=== PATIENT | male | born 1995 | race African-American/Black ===

== ENCOUNTER 2025-01-07 23:04 | Emergency (ER) | payer SELFPAY ==
[~2025-01-07] VITALS: Ht 167.6 cm; Wt 75.0 kg
[2025-01-07 23:11] VITALS: TEMP 98.2
[2025-01-08] MEDS: DEXAMETHASONE SOD PHOS 4 MG/ML 5 ML VIAL IM ONE (00:03)
[2025-01-08] MEDS ORDERED: 0.9% SODIUM CHLORIDE 15 ML NEB SOLUTION NEB ONE (00:06)
[2025-01-08 00:10] VITALS: PULSE 93; RESP 17; O2SAT 97
[2025-01-08] MEDS: LEVALBUTEROL 1.25 MG/0.5 ML NEB SOLUTION NEB ONE (00:16)
[2025-01-08] MEDS: IPRATROPIUM BROMIDE 0.5 MG/2.5 ML NEB SOLUTION NEB ONE (00:16)
[2025-01-08 00:20] VITALS: PULSE 93; RESP 17; O2SAT 97
[2025-01-08 01:15] VITALS: PULSE 98; RESP 22; O2SAT 100
[2025-01-08] MEDS: ALBUTEROL SULFATE HFA 90 MCG/PUFF 8 GM INHALER IH ONE (01:31)
[2025-01-08 01:35] VITALS: PULSE 99; RESP 24; O2SAT 100
[2025-01-08 01:41] VITALS: BP 141/83; PULSE 100; RESP 18; O2SAT 95
== END 2025-01-08 03:03 | disposition home or self-care (01) ==
LOC: EMS 23:04
DX: J45.909 Unspecified asthma, uncomplicated (principal)
CPT/HCPCS: 99285; 71045; 94640; 96372; J1100; J3535; Z7610